=== PATIENT | male | born 1980 | race Caucasian/White ===

== ENCOUNTER 2019-09-25 13:01 | Emergency (ER) | payer OTHER ==
[~2019-09-25] VITALS: Ht 172.7 cm; Wt 74.4 kg
[2019-09-25 13:50] VITALS: BP 130/75
--- NOTE | 2019-09-25 13:52 | NUR ---
PT DIRECTED TO WAIT IN LOBBY
--- NOTE | 2019-09-25 14:30 | NUR ---
39 Y/O M C/C DIZZINESS X 1 DAY. PER PT HAD AN EPISODE OF VOMITING AND NAUSEA THIS MORNING. PT DID NOT TAKE MEDICATION AT HOME. DENIES TRAUMA/FALL AND CONSUMPTION OF ANYTHING THAT COULD HAVE CAUSE DIZZINESS. PT A/OX4; NEURO WDL. DENIES PAIN. PT NKA. NO HX. NO RX. NO DIARRHEA. SIDE RAIL X1. FAMILY AT BEDSIDE.
[2019-09-25] MEDS ORDERED: NACL 0.9% 1,000 ML IV SCH (15:11)
[2019-09-25 16:01] LABS: APPEARANCE,URINE CLEAR (CLEAR); BILIRUBIN,URINE NEGATIVE (NEGATIVE); BLOOD, URINE NEGATIVE (NEGATIVE); COLOR,URINE YELLOW (YELLOW); LEUKOCYTE ESTERASE ,URINE NEGATIVE (NEGATIVE); NITRITE, URINE NEGATIVE (NEGATIVE); UGLUCOSE NEGATIVE (NEGATIVE)
[2019-09-25 16:08] LABS: BASOPHILS % (AUTO) 0.4 % (0.0-2.0); EOSINOPHILS # (AUTO) 0.1 K/uL (0-0.4); EOSINOPHILS % (AUTO) 0.9 % (0.0-4.0); HEMOGLOBIN 15.3 g/dL (12.0-18.0); LYMPHOCYTES # (AUTO) 1.6 K/uL (2.0-11.5); LYMPHOCYTES % (AUTO) 27.7 % (20.5-51.1); MEAN CORPUSCULAR HEMOGLOBIN 32 pg (27-31); MEAN CORPUSCULAR HGB CONC 36 g/dL (33-37); MEAN CORPUSCULAR VOLUME 90.8 fL (80-94); MONOCYTES # (AUTO) 0.4 K/uL (0.8-1.0); MONOCYTES % (AUTO) 7.1 % (1.7-9.3); NEUTROPHILS # (AUTO) 3.7 K/uL (1.8-7.7); NEUTROPHILS % (AUTO) 63.9 % (42.2-75.2); PLATELET COUNT (AUTO) 257 K/uL (140-450); RED BLOOD CELL COUNT(AUTO) 4.74 MIL/uL (4.20-6.10); RED CELL DISTRIBUTION WIDTH 12.5 % (11.6-13.7); WHITE BLOOD COUNT (AUTO) 5.7 K/uL (4.8-10.8)
[2019-09-25 16:26] LABS: ALBUMIN 4.2 g/dL (3.4-5.0); CARBON DIOXIDE 27.8 mmol/L (21-32); CREATININE 0.9 mg/dL (0.6-1.3); POTASSIUM 3.8 mmol/L (3.5-5.1); TOTAL BILIRUBIN 0.6 mg/dL (0.0-1.0)
[2019-09-25 16:52] VITALS: BP 130/75
== END 2019-09-25 16:53 | disposition home or self-care (01) ==
LOC: MED 13:01
DX: R53.1 Weakness (principal); R03.0 Elevated blood-pressure reading, without diagnosis of hypertension; R11.2 Nausea with vomiting, unspecified
CPT/HCPCS: 36415; 80053; 81003; 84484; 85025; 93005; 96360; 99284; J7030; 96361

== ENCOUNTER 2020-10-21 01:11 | Emergency (ER) | payer OTHER ==
[~2020-10-21] VITALS: Ht 175.3 cm; Wt 82.6 kg
[2020-10-21 01:21] VITALS: BP 155/98
--- NOTE | 2020-10-21 01:38 | NUR ---
see complete assessment
--- NOTE | 2020-10-21 01:44 | NUR ---
patient being evaluated by EDWIN
--- NOTE | 2020-10-21 01:51 | NUR ---
PT TAKEN TO BED 4
[2020-10-21] MEDS ORDERED: KETOROLAC 30 MG/ML VIAL IVP ONE (02:25)
[2020-10-21] MEDS ORDERED: NACL 0.9% 1,000 ML IV ONE (02:25)
[2020-10-21] MEDS ORDERED: PANTOPRAZOLE 40 MG INJ VIAL IVP ONE (02:25)
[2020-10-21] MEDS ORDERED: ONDANSETRON 4 MG/2 ML VIAL IVP ONE (02:25)
--- NOTE | 2020-10-21 02:41 | NUR ---
EKG PERFORMED AT BEDSIDE. EKG READS SINUS RHYTHM @ 96
[2020-10-21 02:49] LABS: BASOPHILS % (AUTO) 0.4 % (0.0-2.0); EOSINOPHILS % (AUTO) 0.2 % (0.0-4.0); HEMATOCRIT 44.4 % (36-52); HEMOGLOBIN 15.5 g/dL (12.0-18.0); LYMPHOCYTES # (AUTO) 1.1 K/uL (2.0-11.5); LYMPHOCYTES % (AUTO) 11.6 % (20.5-51.1); MEAN CORPUSCULAR HEMOGLOBIN 34 pg (27-31); MEAN CORPUSCULAR HGB CONC 35 g/dL (33-37); MEAN CORPUSCULAR VOLUME 98.1 fL (80-94); MONOCYTES # (AUTO) 0.6 K/uL (0.8-1.0); MONOCYTES % (AUTO) 6.4 % (1.7-9.3); NEUTROPHILS # (AUTO) 7.7 K/uL (1.8-7.7); NEUTROPHILS % (AUTO) 81.4 % (42.2-75.2); PLATELET COUNT (AUTO) 335 K/uL (140-450); RED BLOOD CELL COUNT(AUTO) 4.52 MIL/uL (4.20-6.10); RED CELL DISTRIBUTION WIDTH 12.6 % (11.6-13.7); WHITE BLOOD COUNT (AUTO) 9.4 K/uL (4.8-10.8)
--- NOTE | 2020-10-21 02:56 | NUR ---
TAKEN TO CT.
[2020-10-21 03:02] LABS: APPEARANCE,URINE SL CLOUDY (CLEAR); BILIRUBIN,URINE NEGATIVE (NEGATIVE); BLOOD, URINE NEGATIVE (NEGATIVE); COLOR,URINE YELLOW (YELLOW); LEUKOCYTE ESTERASE ,URINE NEGATIVE (NEGATIVE); NITRITE, URINE NEGATIVE (NEGATIVE); UGLUCOSE NEGATIVE (NEGATIVE)
[2020-10-21 03:08] LABS: LIPASE 104 U/L (73-393)
[2020-10-21 03:16] LABS: BARBITURATE, URINE NEGATIVE ng/ml (NEG <=200); BENZODIAZEPINE, URINE NEGATIVE ng/mL (NEG <=200); CANNABINOID, URINE NEGATIVE ng/mL (NEG <=50); COCAINE, URINE NEGATIVE ng/mL (NEG <=300); OPIATE, URINE NEGATIVE ng/mL (NEG <=2000); PHENCYCLIDINE SCREEN,URINE NEGATIVE ng/mL (NEG <=25)
--- NOTE | 2020-10-21 03:32 | NUR ---
PT TAKEN TO CT
[2020-10-21 04:13] LABS: ANION GAP 18.3 (8-16); CARBON DIOXIDE 24.5 mmol/L (21-32); CREATININE 0.9 mg/dL (0.6-1.3); POTASSIUM 3.8 mmol/L (3.5-5.1)
[2020-10-21 04:15] LABS: ALBUMIN 4.4 g/dL (3.4-5.0)
[2020-10-21 06:24] VITALS: BP 147/92
--- NOTE | 2020-10-21 06:24 | NUR ---
Patient discharged with v/s stable. Written and verbal after care instructions given and explained. Patient verbalized understanding. Ambulatory with steady gait. All questions addressed prior to discharge. Advised to follow up with PMD.
== END 2020-10-21 06:24 | disposition home or self-care (01) ==
LOC: MED 01:11
DX: R10.13 Epigastric pain (principal); R42 Dizziness and giddiness; R11.2 Nausea with vomiting, unspecified; R63.0 Anorexia
CPT/HCPCS: 36415; 70450; 74176; 80053; 80305; 81003; 82948; 83605; 83690; 84484; 85025; 93005; 96361; 96374; 96375; 99285; C9113; G0482; J1885; J2405